=== PATIENT | male | born 1935 | race Caucasian/White ===

== ENCOUNTER 2019-01-18 07:51 | Day surgery (SDC) | payer OTHER ==
[2019-01-17 11:41] VITALS: BMI 33.0
[2019-01-18] MEDS ORDERED: oxyCODONE HCL 5 MG TABLET PO PRN (08:40)
[2019-01-18] MEDS ORDERED: ONDANSETRON 4 MG/2 ML VIAL IVPUSH PRN (08:40)
[2019-01-18] MEDS ORDERED: LACTATED RINGERS SOLUTION 1,000 ML IV SCH (08:45)
[2019-01-18] MEDS ORDERED: PROPOFOL 20 ML ONE (09:10)
[2019-01-18] MEDS ORDERED: ceFAZolin SODIUM 1 GM VIAL IVPB ONE (10:05)
[2019-01-18] MEDS ORDERED: IOHEXOL 300 MG/ML INFUS..BTL IJ ONE ×2 (10:10)
[2019-01-18] MEDS ORDERED: ceFAZolin SODIUM 1 GM VIAL ONE ×2 (10:32)
[2019-01-18] MEDS ORDERED: DEXAMETHASONE SOD PHOSPHATE 4 MG/1 ML VIAL ONE (10:32)
[2019-01-18] MEDS ORDERED: SODIUM CHLORIDE 0.9% P/F 10 ML VIAL IJ ONE (10:33)
[2019-01-18] MEDS ORDERED: EPHEDRINE SULFATE/0.9% NACL/PF 50 MG/10 ML SYRINGE NR ONE (10:42)
--- NOTE | 2019-01-18 12:55 | OP ---
DATE OF OPERATION: 01/18/2019 PREOPERATIVE DIAGNOSIS: Left ureteral stone. POSTOPERATIVE DIAGNOSIS: Left ureteral stone. PROCEDURE: Cystoscopy with left retrograde pyelogram with left ureteroscopy laser lithotripsy and placement of stent. ATTENDING SURGEON: Quique Alegre MD ANESTHESIA: General. DESCRIPTION OF PROCEDURE: The patient was brought into the operating room. Timeout was performed. Intravenous Ancef was administered. He was then carefully placed in lithotomy and prepped and draped in usual sterile fashion. A 23-Kittitian cystoscope was passed per urethra into the bladder. The patient's prostate was noted to be quite large and somewhat vascular. The bladder itself exhibits numerous submucosal vessels, some of which appear to be oozing some just as a result of the distention of the bladder. The left ureteral orifice was visualized and intubated with a Sensor wire placed inside an open-ended catheter. A retrograde was performed and confirmed the presence of an approximately 1.5- to 1.6-cm stone in the lower third of the ureter. Sensor wire was advanced into the kidney, the bladder drained, and cystoscope removed. The distal ureter was then dilated with a balloon dilator. Following this, a dual-lumen catheter was placed over the previously placed Sensor wire and a second wire inserted. Dual-lumen was then removed. One wire set off to the side as a safety wire, and a 35-cm sheath was then advanced over the second wire and under fluoroscopy to the level of the stone. The rigid ureteroscope was then used and advanced to the stone. The 365 micron laser fiber was then placed through the ureteroscope, and the stone completely fragmented. Some of the fragments were then removed with the Zero Tip basket. There were no significant sized fragments left. Once removed, they were sent to Pathology for stone analysis. The sheath was then carefully removed. The bladder was drained. A 28-cm 6-Kittitian double pigtail catheter was advanced over the safety wire and positioned with the curl in the left renal pelvis distally. Initially, it curled in the prostatic urethra, but the cystoscope was introduced, and the distal part of the catheter was then pushed into the bladder. A 20-Kittitian Arellano was inserted and left to straight drainage. There were no complications. Estimated blood loss approximately 100 mL. The patient left the OR in stable and satisfactory condition. MD JABIER DELEON/[id number]
[2019-01-18 15:55] VITALS: BP 150/86; PULSE 93; TEMP 97.3
--- NOTE | 2019-01-20 18:29 | PATH ---
Surgical Pathology Report Patient Name: YOEL ADAM [facility]. Rec. #: [id number] /Age/Gender: 1935 (Age: 83) / M Account: [id number] Location: [facility] Taken: 01/18/2019 Received: 01/18/2019 Reported: 01/20/2019 Physicians: Quique Alegre MD Specimen(s) Received CALCULI Clinical History Calculus of ureter Final Diagnosis URETERAL STONE, LEFT, LASER LITHOTRIPSY: URETEROLITHIASIS. MACROSCOPIC DIAGNOSIS. Electronically Signed Ginny Alfonso M.D. Gross Description Received fresh labeled "left ureteral stone," is a 0.8 x 0.5 x 0.2 cm aggregate of black, irregular to fragmented calculi. The specimen is sent for chemical analysis. 01/19/201901/19/2019
== END 2019-01-18 15:20 | disposition home or self-care (01) ==
LOC: JASU-SURG 07:51
PROVIDERS: ATTEND Urology
PROC: 0TF78ZZ Fragmentation in Left Ureter, Via Natural or Artificial Opening Endoscopic (ICD-10-PCS; principal; 2019-01-18 10:27)
PROC: 0T778DZ Dilation of Left Ureter with Intraluminal Device, Via Natural or Artificial Opening Endoscopic (ICD-10-PCS; 2019-01-18 10:27)
PROC: BT1FYZZ Fluoroscopy of Left Kidney, Ureter and Bladder using Other Contrast (ICD-10-PCS; 2019-01-18 10:27)
DX: N20.1 Calculus of ureter (principal)
CPT/HCPCS: 36415; 82360; 88300-TC; 94760